=== PATIENT | female | born 1970 | race Caucasian/White ===

== ENCOUNTER 2017-08-05 16:24 | Outpatient (CLI) | payer MEDICAID ==
[~2017-08-05 16:24] MED LIST: BACLOFEN10 MG PO; BACTRIM DS 8001 TAB PO; CEFTRIAXONE1 GM IV; CELEBREX200 MG PO; CHEWABLE ASPIRI81 MG PO; ENBREL50 MG/ML SC; FOLIC ACID1 MG PO; HUMIRA40 MG/0.1; Hydroxychloroq200 MG PO; LEVAQUIN500 MG PO; METOPROLOL50 MG PO; MOBIC7.5 MG PO; PERCOCET 10 MG1 EACH PO; PLAVIX75 MG PO; PLETAL 100MG T100 MG PO; PRAVACHOL40 MG PO; ROBITUSSIN10 ML/UDC PO; TYLENOL W/CODEI1 TA2 PO; VALIUM 10MG TAB10 MG PO; WARFARIN SOD5 MG PO; WARFARIN4 MG PO; WELLBUTRIN100 MG PO; ZANTAC 150150 MG OR
[2017-08-05 17:00] LABS: LYMPH % 33.5 % (10-50.0)
[2017-08-05 17:25] LABS: BUN 10 mg/dL (7-18)
[2017-08-05 17:26] LABS: GFR (ESTIMATED) 132 ML/MIN (59-)
== END 2017-08-05 16:55 | disposition home or self-care (01) ==
LOC: COP 16:24
PROVIDERS: Internal Medicine Adolescent Medicine
DX: D50.9 Iron deficiency anemia, unspecified (principal); D68.61 Antiphospholipid syndrome; M05.79 Rheumatoid arthritis with rheumatoid factor of multiple sites without organ or systems involvement
CPT/HCPCS: J1642